=== PATIENT | female | born 1950 | race Caucasian/White ===

== ENCOUNTER 2019-05-27 14:11 | Emergency (ER) | payer OTHER ==
--- NOTE | 2019-05-27 15:03 | EDM.PDOC ---
ED HPI GENERAL MEDICAL PROBLEM - General Chief Complaint: Neuro Symptoms/Deficits Stated Complaint: UNRESPONSIVE Time Seen by Provider: 05/27/19 14:45 Source of Information: Reports: Patient, Family History Limitations: Reports: No Limitations - History of Present Illness INITIAL COMMENTS - FREE TEXT/NARRATIVE: 68-year-old female brought in by her after having a several hour episode of confusion. She has been fine, but at 11 AM he went into the living room and found her sitting on the couch poking her finger into her palm. He tried to talk to her and she did not seem to recognize he was trying to get her attention, but she quickly improved and began talking to them. He did not notice any facial asymmetry but she slurred her speech for several minutes, and it is been a course of 2 to 3 hours since her symptoms started and she still does not seem right. She had a home health nurse come in and evaluated her and recommended she get evaluated. She has had no recent trauma, illness, fever or chills, headaches, shortness of breath or chest pain. No nausea or vomiting. No medication changes. Onset: Sudden Duration: Hour(s): (4 hours ago symptoms started, they have slowly improved and she is now near baseline.) Location: Reports: Generalized Associated Symptoms: Reports: Confusion, Other (Expressive aphasia, amnesia) Lower Back Pain Score (Numeric/FACES): 0 - Related Data Allergies Allergy/AdvReac Type Severity Reaction Status Date / Time amitriptyline Allergy Other Verified 05/27/19 14:47 buspirone [From BuSpar] Allergy Other Verified 05/27/19 14:47 risperidone Allergy Other Verified 05/27/19 14:47 tramadol Allergy Nausea Verified 05/27/19 14:47 trazodone Allergy Other Verified 05/27/19 14:26 Home Meds: Home Meds Albuterol Sulfate [Proair Respiclick] 90 mcg IH ASDIRECTED 05/27/19 [History] Cetirizine HCl [All Day Allergy] 10 mg PO DAILY 05/27/19 [History] Escitalopram Oxalate 10 mg PO DAILY 05/27/19 [History] Levothyroxine [Synthroid] 100 mcg PO ACBREAKFAST 05/27/19 [History] Montelukast [Singulair] 10 mg PO DAILY 05/27/19 [History] Topiramate 25 mg PO DAILY 05/27/19 [History] Xylitol 2,500 gm MC DAILY 05/27/19 [History] Zolpidem Tartrate 10 mg PO DAILY 05/27/19 [History] Past Medical History HEENT History: Reports: Impaired Vision Respiratory History: Reports: Asthma, Sleep Apnea, SOB Gastrointestinal History: Reports: Colon Polyp Genitourinary History: Reports: Urinary Incontinence 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 Psychiatric History: Reports: Anxiety, Depression, Panic Attack, PTSD Endocrine/Metabolic History: Reports: Hypothyroidism, Obesity/BMI 30+ - Infectious Disease History Infectious Disease History: Reports: Chicken Pox - Past Surgical History Head Surgeries/Procedures: Reports: None HEENT Surgical History: Reports: Adenoidectomy, Tonsillectomy Respiratory Surgical History: Reports: None GI Surgical History: Reports: Colonoscopy, Other (See Below) Female Surgical History: Reports: Salpingo-Oophorectomy Neurological Surgical History: Reports: Spinal Fusion Musculoskeletal Surgical History: Reports: Carpal Tunnel Dermatological Surgical History: Reports: None Social & Family History - Tobacco Use Smoking Status *Q: Never Smoker Second Hand Smoke Exposure: No - Caffeine Use Caffeine Use: Reports: Coffee - Recreational Drug Use Recreational Drug Use: No ED ROS GENERAL - Review of Systems Review Of Systems: See Below Constitutional: Denies: Fever, Chills HEENT: Denies: Vision Change Respiratory: Denies: Shortness of Breath Cardiovascular: Denies: Chest Pain GI/Abdominal: Denies: Abdominal Pain, Nausea, Vomiting Skin: Reports: No Symptoms Neurological: Reports: Paresthesia (Intermittent paresthesias of the left arm over the past several weeks). Denies: Headache Psychiatric: Reports: Other (History of traumatic brain injury) ED EXAM, NEURO - Physical Exam Exam: See Below Exam Limited By: No Limitations General Appearance: Alert, No Apparent Distress Eye Exam: Bilateral Eye: EOMI, PERRL Head Exam: Atraumatic Neck: Normal Inspection, Supple, Non-Tender Respiratory/Chest: No Respiratory Distress, Lungs Clear Cardiovascular: Regular Rate, Rhythm. No: Tachycardia GI/Abdominal: Soft, Non-Tender Neurological: Alert, Normal Mood/Affect, No Motor/Sensory Deficits, Oriented x 3 Extremities: Normal Inspection Psychiatric: Normal Affect, Normal Mood Skin Exam: Warm, Dry Course - Vital Signs Last Recorded V/S: Last Vital Signs Temp 97.8 F 05/27/19 14:29 Pulse 55 L 05/27/19 15:50 Resp 16 05/27/19 15:50 BP 122/59 L 05/27/19 15:50 Pulse Ox 97 05/27/19 15:50 - Orders/Labs/Meds Labs: Laboratory Tests 05/27/19 05/27/19 Range/Units 15:30 15:30 WBC 6.2 (4.5-11.0) K/uL RBC 3.84 (3.30-5.50) M/uL Hgb 12.3 (12.0-15.0) g/dL Hct 38.5 (36.0-48.0) % MCV 100 H (80-98) fL MCH 32 H (27-31) pg MCHC 32 (32-36) % Plt Count 270 (150-400) K/uL Neut % (Auto) 49 (36-66) % Lymph % (Auto) 40 (24-44) % Moca % (Auto) 8 H (2-6) % Eos % (Auto) 2 (2-4) % Baso % (Auto) 1 (0-1) % Sodium 138 L (140-148) mmol/L Potassium 4.0 (3.6-5.2) mmol/L Chloride 104 (100-108) mmol/L Carbon Dioxide 22 (21-32) mmol/L Anion Gap 16.0 H (5.0-14.0) mmol/L BUN 14 (7-18) mg/dL Creatinine 0.9 (0.6-1.0) mg/dL Est Cr Clr Drug Dosing 50.94 mL/min Estimated GFR (MDRD) > 60 (>60) Glucose 94 (74-106) mg/dL Calcium 8.5 (8.5-10.1) mg/dL Total Bilirubin 0.2 (0.2-1.0) mg/dL AST 20 (15-37) U/L ALT 27 (12-78) U/L Alkaline Phosphatase 58 (46-116) U/L Troponin I < 0.017 (0.000-0.056) ng/mL Total Protein 7.1 (6.4-8.2) g/dL Albumin 3.6 (3.4-5.0) g/dL Globulin 3.5 (2.3-3.5) g/dL Albumin/Globulin Ratio 1.0 L (1.2-2.2) - Re-Assessments/Exams Free Text/Narrative Re-Assessment/Exam: 05/27/19 15:35 Initial labs were reassuring, troponin was 0, electrolytes normal, CBC normal. IMPRESSION: Normal CT brain without contrast. Patient remained comfortable and relatively asymptomatic while in the emergency room. CT scan was negative. 05/27/19 17:13 Current lab, imaging, and physical exam do not elicit the cause of her symptoms this morning. It was discussed with neurology and stroke team in [place], and it was recommended she be transferred for further evaluation with an MRI, possibly EEG or angiography. [facility] [place] [facility]. Patient was comfortable and accepting of the plan. No further treatment was given. Departure - Departure Time of Disposition: 17:40 Disposition: DC/Tfer to Other Clinical Impression: Change in mental status Qualifiers: Altered mental status type: disorientation Qualified Code(s): R41.0 - Disorientation, unspecified - Discharge Information Referrals: PCP,None [Primary Care Provider] - Forms: ED Department Discharge Care Plan Goals: Due to the significance of the patient's symptoms she will be transferred to [place] to be evaluated by the neurology/stroke team at [facility]. She will be transferred by EMS. Sepsis Event Note - Evaluation Sepsis Screening Result: No Definite Risk - Focused Exam Date Exam was Performed: 05/28/19 Time Exam was Performed: 07:09
--- NOTE | 2019-05-27 15:28 | CRLCT ---
INDICATION: 68-year-old female. Unresponsive episode. TECHNIQUE: CT images are obtained from foramen magnum to vertex without contrast. FINDINGS: The lateral, 3rd and 4th ventricles are normal in size and shape. There is no evidence of acute intracranial hemorrhage. There are no subdural fluid collections. There is no mass effect. There is no evidence of focal infarction. There is no posterior fossa hemorrhage or mass effect. The bony calvarium is unremarkable. Included paranasal sinuses are clear. IMPRESSION: Normal CT brain without contrast. Please note that all CT scans at this facility use dose modulation, iterative reconstruction, and/or weight-based dosing when appropriate to reduce radiation dose to as low as reasonably achievable. Dictated by Elia Bateman MD @ May 27 2019 3:26PM Signed by Dr. Elia Bateman @ May 27 2019 3:27PM
== END 2019-05-27 17:41 | disposition other institution (70) ==
LOC: JP.ED 14:11
DX: R41.0 Disorientation, unspecified (principal); J45.909 Unspecified asthma, uncomplicated; E03.9 Hypothyroidism, unspecified; F32.9 Major depressive disorder, single episode, unspecified; F41.9 Anxiety disorder, unspecified; E66.9 Obesity, unspecified; Z68.34 Body mass index [BMI] 34.0-34.9, adult; Z88.8 Allergy status to other drugs, medicaments and biological substances; Z88.5 Allergy status to narcotic agent; Z79.899 Other long term (current) drug therapy; Z79.890 Hormone replacement therapy
CPT/HCPCS: 36415; 70450; 80053; 84484; 85025; 99285-25

== ENCOUNTER 2020-06-09 21:55 | Emergency (ER) | payer OTHER ==
[2020-06-09] MEDS ORDERED: Ketorolac 30 MG/ML SDV IM ONE (22:41)
--- NOTE | 2020-06-09 22:47 | EDM.PDOC ---
ED HPI GENERAL MEDICAL PROBLEM - General Chief Complaint: Abdominal Pain Stated Complaint: ABDOMEN PAIN Time Seen by Provider: 06/09/20 22:30 Source of Information: Reports: Patient, Old Records, RN History Limitations: Reports: No Limitations - History of Present Illness INITIAL COMMENTS - FREE TEXT/NARRATIVE: 69 yo female here with RLQ/R hemipelvis pain that is intermittent and began about 6 pm. No fever, dysuria or constipation. Has had loose stools lately. Walking seemed to make the pain worse at home, but not here. Is here with her . Has had this in the past and it was much less severe so was never seen by a medical provider. 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) - Related Data Allergies Allergy/AdvReac Type Severity Reaction Status Date / Time amitriptyline Allergy Other Verified 06/09/20 22:10 buspirone [From BuSpar] Allergy Other Verified 06/09/20 22:10 risperidone Allergy Other Verified 06/09/20 22:10 tramadol Allergy Nausea Verified 06/09/20 22:10 trazodone Allergy Other Verified 06/09/20 22:10 Home Meds: Home Meds Albuterol Sulfate [Proair Respiclick] 90 mcg IH ASDIRECTED 05/27/19 [History] Cetirizine HCl [All Day Allergy] 10 mg PO DAILY 05/27/19 [History] Escitalopram Oxalate 10 mg PO DAILY 05/27/19 [History] Levothyroxine [Synthroid] 100 mcg PO ACBREAKFAST 05/27/19 [History] Montelukast [Singulair] 10 mg PO DAILY 05/27/19 [History] Topiramate 25 mg PO DAILY 05/27/19 [History] Xylitol 2,500 gm MC DAILY 05/27/19 [History] Zolpidem Tartrate 10 mg PO DAILY 05/27/19 [History] Past Medical History HEENT History: Reports: Impaired Vision Respiratory History: Reports: Asthma, Sleep Apnea, SOB Gastrointestinal History: Reports: Colon Polyp Genitourinary History: Reports: Urinary Incontinence 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 Psychiatric History: Reports: Anxiety, Depression, Panic Attack, PTSD Endocrine/Metabolic History: Reports: Hypothyroidism, Obesity/BMI 30+ - Infectious Disease History Infectious Disease History: Reports: Chicken Pox - Past Surgical History Head Surgeries/Procedures: Reports: None HEENT Surgical History: Reports: Adenoidectomy, Tonsillectomy Respiratory Surgical History: Reports: None GI Surgical History: Reports: Colonoscopy, Other (See Below) Female Surgical History: Reports: Salpingo-Oophorectomy Neurological Surgical History: Reports: Spinal Fusion Musculoskeletal Surgical History: Reports: Carpal Tunnel Dermatological Surgical History: Reports: None Social & Family History - Tobacco Use Tobacco Use Status *Q: Never Tobacco User - Caffeine Use Caffeine Use: Reports: Coffee ED ROS GENERAL - Review of Systems Review Of Systems: See Below Constitutional: Reports: No Symptoms HEENT: Reports: No Symptoms Respiratory: Reports: No Symptoms Cardiovascular: Reports: No Symptoms GI/Abdominal: Reports: Abdominal Pain (RLQ just lateral to her bladder), Diarrhea. Denies: Black Stool, Bloody Stool, Constipation, Distension, Hematemesis, Hematochezia, Melena, Nausea, Vomiting : Reports: Pain (R hemipelvis) Musculoskeletal: Reports: No Symptoms Skin: Reports: No Symptoms Neurological: Reports: No Symptoms ED EXAM, GI/ABD - Physical Exam Exam: See Below Exam Limited By: No Limitations General Appearance: Alert, WD/WN, No Apparent Distress Eyes: Bilateral: Normal Appearance Ears: Normal External Exam, Normal Canal, Hearing Grossly Normal Nose: Normal Inspection, No Blood Throat/Mouth: Normal Inspection, Normal Lips, Normal Oropharynx, Normal Voice, No Airway Compromise Head: Atraumatic, Normocephalic Neck: Normal Inspection Respiratory/Chest: No Respiratory Distress, Lungs Clear, Normal Breath Sounds, No Accessory Muscle Use Cardiovascular: Regular Rate, Rhythm, No Edema GI/Abdominal Exam: Normal Bowel Sounds, Soft, Non-Tender, No Distention Back Exam: Normal Inspection. No: CVA Tenderness (R), CVA Tenderness (L) Extremities: Normal Inspection, Normal Range of Motion, Non-Tender, No Pedal Edema Neurological: Alert, Oriented, CN II-XII Intact, Normal Cognition, No Motor/Sensory Deficits Psychiatric: Normal Affect, Normal Mood Skin Exam: Warm, Dry, Intact, Normal Color, No Rash Course - Vital Signs Last Recorded V/S: Last Vital Signs Temp 36.8 C 06/09/20 22:18 Pulse 56 L 06/09/20 22:18 Resp 14 06/09/20 22:18 BP 132/61 06/09/20 22:18 Pulse Ox 98 06/09/20 22:18 - Orders/Labs/Meds Orders: Active Orders 24 hr Category Date Time Status Abdomen 2V AP Flat Upright [CR] Stat Exams 06/09/20 22:40 Taken Labs: Laboratory Tests 06/09/20 06/09/20 06/09/20 Range/Units 22:23 22:40 22:40 WBC 7.2 (4.5-11.0) K/uL RBC 4.13 (3.30-5.50) M/uL Hgb 12.8 (12.0-15.0) g/dL Hct 40.5 (36.0-48.0) % MCV 98 (80-98) fL MCH 31 (27-31) pg MCHC 32 (32-36) % Plt Count 261 (150-400) K/uL C-Reactive Protein < 0.05 (0.0-0.3) mg/dL Urine Color Yellow (YELLOW) Urine Appearance Clear (CLEAR) Urine pH 5.5 (5.0-8.0) Ur Specific Russell >= 1.030 (1.008-1.030) Urine Protein Negative (NEGATIVE) mg/dL Urine Glucose (UA) Negative (NEGATIVE) mg/dL Urine Ketones Negative (NEGATIVE) mg/dL Urine Occult Blood Negative (NEGATIVE) Urine Nitrite Negative (NEGATIVE) Urine Bilirubin Negative (NEGATIVE) Urine Urobilinogen 0.2 (0.2-1.0) EU/dL Ur Leukocyte Esterase Negative (NEGATIVE) Urine RBC 0-5 (0-5) Urine WBC 0-5 (0-5) Ur Epithelial Cells Few Amorphous Sediment Rare Urine Bacteria Not seen Urine Mucus Not seen Meds: Medications Discontinued Medications Generic Name Dose Route Start Last Admin Trade Name Freq PRN Reason Stop Dose Admin Acetaminophen 1,000 mg 06/09/20 22:55 Tylenol Extra Strength PO 12/26/20 22:56 ONETIME ONE Ketorolac Tromethamine 30 mg 06/09/20 22:41 06/09/20 23:09 Toradol IM 06/09/20 22:42 Not Given ONETIME ONE Polyethylene Glycol 34 gm 06/09/20 23:10 Miralax PO 06/09/20 23:11 ONETIME ONE - Radiology Interpretation Free Text/Narrative:: Abdominal X-ray-large amt of stool - Re-Assessments/Exams Free Text/Narrative Re-Assessment/Exam: 06/09/20 23:17 Refused enema and Miralax. Departure - Departure Time of Disposition: 23:15 Disposition: Home, Self-Care 01 Condition: Good Clinical Impression: Constipation Qualifiers: Constipation type: slow transit constipation Qualified Code(s): K59.01 - Slow transit constipation - Discharge Information *PRESCRIPTION DRUG MONITORING PROGRAM REVIEWED*: Not Applicable *COPY OF PRESCRIPTION DRUG MONITORING REPORT IN PATIENT LIBIA: Not Applicable Referrals: Altagracia Acuña [employer] [Primary Care Provider] - Forms: ED Department Discharge Additional Instructions: Increase fluids and fiber. Consider trying glycerin suppositories. Fiber products like Metamucil twice daily until things clear out, then daily for prevention may be helpful. Fleets enema can be purchased over the counter. Sepsis Event Note (ED) - Evaluation Sepsis Screening Result: No Definite Risk - Focused Exam Vital Signs: Vital Signs Temp Pulse Resp BP Pulse Ox 06/09/20 22:18 36.8 C 56 L 14 132/61 98 - My Orders Last 24 Hours: My Active Orders 06/09/20 22:40 Abdomen 2V AP Flat Upright [CR] Stat - Assessment/Plan Last 24 Hours: My Active Orders 06/09/20 22:40 Abdomen 2V AP Flat Upright [CR] Stat
[2020-06-09] MEDS ORDERED: Acetaminophen 500 MG Tab PO ONE (22:55)
[2020-06-09] MEDS ORDERED: Polyethylene Glycol 3350 Powder 17 GM Packet PO ONE (23:10)
--- NOTE | 2020-06-11 11:57 | CR ---
Abdomen 2V AP Flat Upright CLINICAL HISTORY: Intermittent abdominal pain FINDINGS: No free air is identified. Intestinal gas pattern is nonacute. There is some fecal retention in the right colon IMPRESSION: Nonacute intestinal gas pattern
== END 2020-06-09 23:28 | disposition home or self-care (01) ==
LOC: JP.ED 21:55
DX: K59.01 Slow transit constipation (principal); J45.909 Unspecified asthma, uncomplicated; F41.9 Anxiety disorder, unspecified; F32.9 Major depressive disorder, single episode, unspecified; E66.9 Obesity, unspecified; E03.9 Hypothyroidism, unspecified; Z68.31 Body mass index [BMI] 31.0-31.9, adult; Z88.8 Allergy status to other drugs, medicaments and biological substances; Z88.5 Allergy status to narcotic agent
CPT/HCPCS: 36415; 74019; 74019-26; 81001; 85027; 86140; 99284